=== PATIENT | male | born 1940 | race Caucasian/White ===

== ENCOUNTER 2016-03-20 09:59 | Inpatient (IN) | payer OTHER ==
[~2016-03-20] VITALS: Ht 185.4 cm; Wt 110.1 kg
[~2016-03-20 09:59] MED LIST: ASPI81TA27 PO; ATOR1TAB PO; BUPR1TAB11 PO; CLOP75TA28 PO; FLUO40CA PO; FLUT250M2 INH; GOSE10.8 SC; ISOS30TA17 PO; METO-291 PO; OLME40TA27 PO; TIOTCAP INH
[2016-03-20 10:51] LABS: Basophils # (auto) 0 uL; Basophils % (auto) 0.6 % (0.0-2.0); Eosinophils # (auto) 0.1 uL; Hematocrit 40.6 % (41.0-53.0); Hemoglobin 13.2 g/dL (13.5-17.5); Lymphocytes # (auto) 1.7 uL; Mean Corpuscular Hemoglobin 29.4 pg (28.0-32.0); Mean Corpuscular Hgb Conc. 32.6 g/dL (32.0-36.0); Mean Corpuscular Volume 90.2 fL (80.0-100.0); Mean Platelet Volume 8.9 fL (7.4-10.4); Monocytes # (auto) 0.8 uL; Monocytes % (auto) 11.8 % (0.0-12.0); Neutrophils # (auto) 4.4 uL; Neutrophils % (auto) 61.6 % (37.0-80.0); Platelet Count (auto) 188 10^3/uL (140-450); Red Cell Distribution Width 14.7 % (11.6-16.0); White Blood Cell 7.1 10^3/uL (4.4-10.8)
[2016-03-20 11:08] LABS: Albumin 3.2 g/dL (3.4-5.0); BUN/Creatinine Ratio 15.7; Bilirubin, Total 0.5 mg/dL (0.2-1.0); Calcium 8.5 mg/dL (8.5-10.1); Magnesium 2.3 mg/dL (1.6-2.6); Potassium 3.6 mmol/L (3.5-5.1)
[2016-03-20 12:33] LABS: INR 1.05 (0.9-1.15); Prothrombin Time 10.8 sec (9.37-12.3)
[2016-03-20 13:02] LABS: B-Type Natriuretic Peptide 500.8 pg/mL (0-100); Temperature: 22.5 C (20.0-25.0)
[2016-03-20] MEDS ORDERED: NITROGLYCERIN 0.4 MG SL TAB SL PRN (14:00)
[2016-03-20] MEDS ORDERED: LACTULOSE 20Gm/30ML SOLN PO PRN (14:00)
[2016-03-20] MEDS ORDERED: LORazepam 0.5 MG TAB PO PRN (14:00)
[2016-03-20] MEDS ORDERED: HYDROcodone-ACET 5/325MG TAB PO PRN (14:00)
[2016-03-20] MEDS ORDERED: PROMETHAZINE HCL 25 MG/ML 1ML IV PRN (14:00)
[2016-03-20] MEDS ORDERED: ACETAMINOPHEN 500 MG TAB PO PRN (14:00)
[2016-03-20] MEDS ORDERED: TEMAZEPAM 15 MG CAP PO PRN (14:00)
[2016-03-20] MEDS ORDERED: MORPHINE SULF INJ 2 MG/ML SYRINGE 1ML IV PRN ×2 (14:00)
[2016-03-20] MEDS: ASPirin 81 mg TAB PO SCH (14:04)
[2016-03-20] MEDS ORDERED: ENOXAPARIN SOD 40 MG/0.4 ML SYRINGE SC SCH (14:05)
[2016-03-20] MEDS: ISOSORBIDE MONONITRATE 60 MG TAB PO SCH (14:12)
[2016-03-20] MEDS: METOPROLOL SUCCINATE XL 50 MG TAB PO SCH (14:13)
[2016-03-20] MEDS: LOSARTAN POTASSIUM 50 MG TAB PO SCH (14:15)
[2016-03-20] MEDS: DIGOXIN (250MCG/ML) 2 ML AMPULE IV SCH ×2 (14:30→19:03)
[2016-03-20] MEDS ORDERED: methylPREDNISolone SOD SUCC 40 MG/ML VL IV ONE (14:30)
[2016-03-20] MEDS: ENOXAPARIN SOD 100 MG/1 ML SYRINGE SC SCH ×2 (15:03→22:08)
[2016-03-20] MEDS: POTASSIUM CHL 20 Meq TABLET PO SCH (15:04)
[2016-03-20] MEDS: FUROSEMIDE 40 MG/4 ML VIAL IV SCH (15:06)
[2016-03-20] MEDS: LEVOFLOXACIN 500MG 100 ML IV SCH (15:06)
[2016-03-20] MEDS ORDERED: WARFARIN SODIUM 5 MG TAB PO ONE (17:00)
[2016-03-20] MEDS: ALBUTEROL SULF 2.5 MG/0.5ML(0.5%) NEB SOLN NEB SCH ×2 (18:00→23:00)
[2016-03-20] MEDS: IPRATROPIUM BROM 0.5 MG/2.5ML INH SOL NEB SCH ×2 (18:00→23:00)
[2016-03-20 18:33] VITALS: BP_SYST 136; BP_SYST 161; BP_DIAS 73; BP_DIAS 98
[2016-03-20] MEDS ORDERED: METOPROLOL TARTRATE 1MG/1ML-5ML VIAL IV ONE (19:00)
[2016-03-20] MEDS ORDERED: IOHEXOL 350 MG/ML 100ML IJ ONE (19:39)
[2016-03-20] MEDS ORDERED: PNEUMOCOCCAL VACC POLYS 25 MCG/0.5 ML VIAL IM ONE (19:45)
[2016-03-20 22:00] VITALS: BP 111/71
[2016-03-20] MEDS: BUDESONIDE (INHALATION) 0.5 MG/2 ML NEB NEB SCH (22:00)
[2016-03-20] MEDS: ATORVASTATIN 20 MG TAB PO SCH (22:07)
[2016-03-20] MEDS: buPROPion HCL 100 MG TAB PO SCH (22:08)
[2016-03-20] MEDS: OSELTAMIVIR 75 MG CAP PO SCH (22:08)
[2016-03-21 00:04] VITALS: BP 111/71
[2016-03-21] MEDS: methylPREDNISolone SOD SUCC 40 MG/ML VL IV SCH ×2 (02:36→13:57)
[2016-03-21] MEDS: DIGOXIN (250MCG/ML) 2 ML AMPULE IV SCH (02:39)
[2016-03-21 05:54] VITALS: BP 129/61
[2016-03-21 06:27] LABS: Basophils # (auto) 0 uL; Basophils % (auto) 0.2 % (0.0-2.0); Eosinophils # (auto) 0 uL; Hematocrit 39.3 % (41.0-53.0); Hemoglobin 12.6 g/dL (13.5-17.5); Lymphocytes # (auto) 0.9 uL; Lymphocytes % (auto) 22.3 % (10.0-50.0); Mean Corpuscular Hemoglobin 29.2 pg (28.0-32.0); Mean Corpuscular Hgb Conc. 32.2 g/dL (32.0-36.0); Mean Corpuscular Volume 90.6 fL (80.0-100.0); Mean Platelet Volume 9.2 fL (7.4-10.4); Monocytes # (auto) 0.3 uL; Monocytes % (auto) 7.7 % (0.0-12.0); Neutrophils # (auto) 2.9 uL; Neutrophils % (auto) 69.8 % (37.0-80.0); Platelet Count (auto) 179 10^3/uL (140-450); Red Cell Distribution Width 14.3 % (11.6-16.0); White Blood Cell 4.2 10^3/uL (4.4-10.8)
[2016-03-21] MEDS: buPROPion HCL 100 MG TAB PO SCH ×3 (06:37→22:27)
[2016-03-21] MEDS: FLUoxetine HCL 20 MG CAP PO SCH (06:37)
[2016-03-21 06:44] LABS: Partial Thromboplastin Time 43.8 sec (22.64-33.71); Prothrombin Time 12.2 sec (9.37-12.3)
[2016-03-21] MEDS: IPRATROPIUM BROM 0.5 MG/2.5ML INH SOL NEB SCH ×3 (06:49→18:41)
[2016-03-21] MEDS: ALBUTEROL SULF 2.5 MG/0.5ML(0.5%) NEB SOLN NEB SCH ×3 (06:49→18:41)
[2016-03-21 06:55] LABS: INR 1.18 (0.9-1.15)
[2016-03-21 06:57] LABS: Albumin 2.9 g/dL (3.4-5.0); Bilirubin, Total 0.4 mg/dL (0.2-1.0); Calcium 8.4 mg/dL (8.5-10.1); Potassium 4.4 mmol/L (3.5-5.1); Total Protein 6.7 g/dL (6.4-8.2)
[2016-03-21 07:04] LABS: B-Type Natriuretic Peptide 333 pg/mL (0-100)
[2016-03-21 08:04] LABS: Urine Bilirubin Negative (Negative); Urine Blood Negative /uL (Negative); Urine Color Yellow (Yellow); Urine Glucose Normal (Normal); Urine Hyaline Cast FEW /lpf (0 - 2); Urine Ketone Negative (Negative); Urine Mucus FEW (None Seen); Urine Nitrite Negative (Negative); Urine RBC <1 /hpf (0 - 3); Urine Squamous Epithelial Cell FEW /hpf (<5); Urine Urobilinogen Normal (Negative); Urine pH 5.5 (5.0-8.0)
[2016-03-21 09:24] VITALS: BP 165/74
[2016-03-21] MEDS: ENOXAPARIN SOD 100 MG/1 ML SYRINGE SC SCH ×2 (09:50→22:27)
[2016-03-21] MEDS: LEVOFLOXACIN 500MG 100 ML IV SCH (09:50)
[2016-03-21] MEDS: ASPirin 81 mg TAB PO SCH (09:51)
[2016-03-21] MEDS: OSELTAMIVIR 75 MG CAP PO SCH ×2 (09:51→22:26)
[2016-03-21] MEDS: DIGOXIN 0.25 MG TAB PO SCH (09:51)
[2016-03-21] MEDS: POTASSIUM CHL 20 Meq TABLET PO SCH (09:52)
[2016-03-21] MEDS: FUROSEMIDE 40 MG/4 ML VIAL IV SCH (09:52)
[2016-03-21] MEDS: ISOSORBIDE MONONITRATE 60 MG TAB PO SCH (09:52)
[2016-03-21] MEDS: METOPROLOL SUCCINATE XL 50 MG TAB PO SCH (09:53)
[2016-03-21] MEDS: LOSARTAN POTASSIUM 50 MG TAB PO SCH (09:53)
[2016-03-21] MEDS ORDERED: FURO20TA PO (11:37)
[2016-03-21] MEDS ORDERED: POTA10TA51 PO (11:37)
[2016-03-21] MEDS ORDERED: FLUT250M2 INH (11:37)
[2016-03-21] MEDS ORDERED: CLOP75TA41 PO (11:37)
[2016-03-21] MEDS ORDERED: LEVO125T6 PO (11:39)
[2016-03-21] MEDS: BUDESONIDE (INHALATION) 0.5 MG/2 ML NEB NEB SCH ×2 (12:18→18:40)
[2016-03-21 12:22] VITALS: BP 133/74
[2016-03-21] MEDS ORDERED: WARFARIN SODIUM 5 MG TAB PO ONE (17:00)
[2016-03-21 17:29] VITALS: BP 113/62
[2016-03-21 22:00] VITALS: BP 117/71
[2016-03-21] MEDS: ATORVASTATIN 20 MG TAB PO SCH (22:26)
[2016-03-22] MEDS: IPRATROPIUM BROM 0.5 MG/2.5ML INH SOL NEB SCH ×5 (00:59→23:57)
[2016-03-22] MEDS: ALBUTEROL SULF 2.5 MG/0.5ML(0.5%) NEB SOLN NEB SCH ×5 (01:00→23:57)
[2016-03-22 05:00] VITALS: BP 124/66
[2016-03-22] MEDS: buPROPion HCL 100 MG TAB PO SCH ×3 (05:48→22:27)
[2016-03-22 06:19] LABS: Partial Thromboplastin Time 42.3 sec (22.64-33.71)
[2016-03-22] MEDS: FLUoxetine HCL 20 MG CAP PO SCH (06:19)
[2016-03-22 06:23] LABS: INR 1.34 (0.9-1.15); Prothrombin Time 13.8 sec (9.37-12.3)
[2016-03-22] MEDS: BUDESONIDE (INHALATION) 0.5 MG/2 ML NEB NEB SCH ×2 (06:54→23:57)
[2016-03-22 09:00] VITALS: BP 118/64
[2016-03-22] MEDS: LEVOFLOXACIN 500MG 100 ML IV SCH (09:54)
[2016-03-22] MEDS: ASPirin 81 mg TAB PO SCH (09:54)
[2016-03-22] MEDS: ENOXAPARIN SOD 100 MG/1 ML SYRINGE SC SCH ×2 (09:54→22:28)
[2016-03-22] MEDS: OSELTAMIVIR 75 MG CAP PO SCH ×2 (10:00→22:27)
[2016-03-22 10:52] LABS: Temperature: 22.5 C (20.0-25.0)
[2016-03-22 12:17] VITALS: BP 135/60
[2016-03-22] MEDS: DIGOXIN 0.25 MG TAB PO SCH (13:23)
[2016-03-22] MEDS: METOPROLOL SUCCINATE XL 50 MG TAB PO SCH (13:23)
[2016-03-22 17:19] VITALS: BP 104/75
[2016-03-22 22:00] VITALS: BP 118/77
[2016-03-22] MEDS: ATORVASTATIN 20 MG TAB PO SCH (22:29)
[2016-03-23 06:08] VITALS: BP 122/81
[2016-03-23] MEDS: buPROPion HCL 100 MG TAB PO SCH (06:18)
[2016-03-23] MEDS: FLUoxetine HCL 20 MG CAP PO SCH (06:18)
[2016-03-23] MEDS: IPRATROPIUM BROM 0.5 MG/2.5ML INH SOL NEB SCH ×2 (06:41→13:20)
[2016-03-23] MEDS: ALBUTEROL SULF 2.5 MG/0.5ML(0.5%) NEB SOLN NEB SCH ×2 (06:41→13:20)
[2016-03-23] MEDS: BUDESONIDE (INHALATION) 0.5 MG/2 ML NEB NEB SCH (06:42)
[2016-03-23 07:09] LABS: Basophils # (auto) 0 uL; Basophils % (auto) 0.2 % (0.0-2.0); Eosinophils # (auto) 0 uL; Eosinophils % (auto) 0.5 % (0.0-7.0); Hematocrit 40.3 % (41.0-53.0); Lymphocytes # (auto) 2.1 uL; Lymphocytes % (auto) 31.8 % (10.0-50.0); Mean Corpuscular Hemoglobin 29.3 pg (28.0-32.0); Mean Corpuscular Hgb Conc. 32.2 g/dL (32.0-36.0); Mean Corpuscular Volume 90.9 fL (80.0-100.0); Mean Platelet Volume 9.3 fL (7.4-10.4); Monocytes # (auto) 0.7 uL; Monocytes % (auto) 10.4 % (0.0-12.0); Neutrophils # (auto) 3.7 uL; Neutrophils % (auto) 57.1 % (37.0-80.0); Platelet Count (auto) 198 10^3/uL (140-450); White Blood Cell 6.5 10^3/uL (4.4-10.8)
[2016-03-23 07:17] LABS: BUN/Creatinine Ratio 28.3; Calcium 8.6 mg/dL (8.5-10.1); Potassium 3.9 mmol/L (3.5-5.1)
[2016-03-23 07:58] VITALS: BP 131/88
[2016-03-23] MEDS: LEVOFLOXACIN 500MG 100 ML IV SCH (10:24)
[2016-03-23] MEDS: ASPirin 81 mg TAB PO SCH (10:24)
[2016-03-23] MEDS: DIGOXIN 0.25 MG TAB PO SCH (10:25)
[2016-03-23] MEDS: ENOXAPARIN SOD 100 MG/1 ML SYRINGE SC SCH (10:25)
[2016-03-23] MEDS: METOPROLOL SUCCINATE XL 50 MG TAB PO SCH (10:26)
[2016-03-23] MEDS: OSELTAMIVIR 75 MG CAP PO SCH (11:07)
[2016-03-23 11:53] VITALS: BP 131/88
== END 2016-03-23 14:20 | disposition home or self-care (01) | DRG 280 ==
LOC: ER 09:59 → TELE 10:00 → TELE-CENTR 17:02
PROVIDERS: ADMIT Internal Medicine; ATTEND Family Medicine
PROC: 5A09357 Assistance with Respiratory Ventilation, Less than 24 Consecutive Hours, Continuous Positive Airway Pressure (ICD-10-PCS; principal; 2016-03-23)
DX: I21.4 Non-ST elevation (NSTEMI) myocardial infarction (principal); I63.9 Cerebral infarction, unspecified; J09.X1 Influenza due to identified novel influenza A virus with pneumonia; J18.9 Pneumonia, unspecified organism; I50.43 Acute on chronic combined systolic (congestive) and diastolic (congestive) heart failure; J44.1 Chronic obstructive pulmonary disease with (acute) exacerbation; J44.0 Chronic obstructive pulmonary disease with (acute) lower respiratory infection; E11.65 Type 2 diabetes mellitus with hyperglycemia; I48.91 Unspecified atrial fibrillation; E66.01 Morbid (severe) obesity due to excess calories; E78.5 Hyperlipidemia, unspecified; G47.33 Obstructive sleep apnea (adult) (pediatric); I11.0 Hypertensive heart disease with heart failure; I25.10 Atherosclerotic heart disease of native coronary artery without angina pectoris; J09.X2 Influenza due to identified novel influenza A virus with other respiratory manifestations; I25.2 Old myocardial infarction; Z80.7 Family history of other malignant neoplasms of lymphoid, hematopoietic and related tissues; Z82.3 Family history of stroke; Z82.49 Family history of ischemic heart disease and other diseases of the circulatory system; Z83.3 Family history of diabetes mellitus; Z85.46 Personal history of malignant neoplasm of prostate; Z87.891 Personal history of nicotine dependence; Z98.61 Coronary angioplasty status; Z68.32 Body mass index [BMI] 32.0-32.9, adult; Z99.81 Dependence on supplemental oxygen; Z79.82 Long term (current) use of aspirin; Z79.899 Other long term (current) drug therapy
CPT/HCPCS: 36415; 70450; 70551; 71010; 71275; 80048; 80053; 80061; 81001; 82550; 82607; 82746; 82962; 83036; 83605; 83735; 83880; 84443; 84484; 85025; 85049; 85610; 85652; 85730; 87040; 87070; 87086; 87205; 87400; 93005; 93886; 93971; 94640; 94660; 95819; 96374; 97001; J1956

== ENCOUNTER → 2016-04-06 | Outpatient (CLI) | payer OTHER ==
[~2016-04-06] MED LIST changes: -CLOP75TA28 PO; +CLOP75TA41 PO; +FURO20TA PO; -GOSE10.8 SC; +LEVO125T6 PO; +POTA10TA51 PO
[2016-04-06 12:44] LABS: Basophils # (auto) 0.1 uL; Basophils % (auto) 0.8 % (0.0-2.0); Eosinophils # (auto) 0.5 uL; Eosinophils % (auto) 6.2 % (0.0-7.0); Hematocrit 39.2 % (41.0-53.0); Hemoglobin 12.1 g/dL (13.5-17.5); Lymphocytes # (auto) 2.1 uL; Lymphocytes % (auto) 26.4 % (10.0-50.0); Mean Corpuscular Hemoglobin 28.5 pg (28.0-32.0); Mean Corpuscular Hgb Conc. 30.9 g/dL (32.0-36.0); Mean Corpuscular Volume 92.1 fL (80.0-100.0); Mean Platelet Volume 8.8 fL (7.4-10.4); Monocytes # (auto) 0.7 uL; Monocytes % (auto) 8.9 % (0.0-12.0); Neutrophils # (auto) 4.5 uL; Neutrophils % (auto) 57.7 % (37.0-80.0); Platelet Count (auto) 264 10^3/uL (140-450); Red Cell Distribution Width 15.3 % (11.6-16.0); White Blood Cell 7.8 10^3/uL (4.4-10.8)
[2016-04-06 13:20] LABS: Calcium 8.6 mg/dL (8.5-10.1); Potassium 3.6 mmol/L (3.5-5.1)
[2016-04-06 13:39] LABS: B-Type Natriuretic Peptide 174.21 pg/mL (0-100); Temperature: 21.7 C (20.0-25.0)
== END | disposition home or self-care (01) ==
LOC: LAB 11:44
PROVIDERS: ATTEND Internal Medicine Cardiovascular Disease
DX: I50.22 Chronic systolic (congestive) heart failure (principal)
CPT/HCPCS: 36415; 80048; 83880; 85025

== ENCOUNTER → 2016-04-20 | Outpatient (CLI) | payer OTHER | END | disposition home or self-care (01) | LOC: LAB 09:18 | DX: I48.91 Unspecified atrial fibrillation (principal); E78.4 Other hyperlipidemia | CPT/HCPCS: 36415; 80162 ==

== ENCOUNTER → 2016-04-27 | Outpatient (CLI) | payer OTHER ==
[~2016-04-27] MED LIST changes: +ALBUTEROL SULF 2.5 MG/0.5ML(0.5%) NEB SOLN ONE
== END | disposition home or self-care (01) ==
LOC: RT 08:29
PROVIDERS: ATTEND Internal Medicine Pulmonary Disease
DX: J44.9 Chronic obstructive pulmonary disease, unspecified (principal)
CPT/HCPCS: 94060

== ENCOUNTER → 2016-05-20 | Outpatient (CLI) | payer OTHER ==
[~2016-05-20] MED LIST changes: -ALBUTEROL SULF 2.5 MG/0.5ML(0.5%) NEB SOLN ONE
[2016-05-20 10:09] LABS: Basophils # (auto) 0 uL; Basophils % (auto) 0.3 % (0.0-2.0); Eosinophils # (auto) 0.5 uL; Eosinophils % (auto) 6.5 % (0.0-7.0); Hematocrit 36.1 % (41.0-53.0); Hemoglobin 11.8 g/dL (13.5-17.5); Lymphocytes # (auto) 1.9 uL; Lymphocytes % (auto) 25.6 % (10.0-50.0); Mean Corpuscular Hemoglobin 29.7 pg (28.0-32.0); Mean Corpuscular Hgb Conc. 32.7 g/dL (32.0-36.0); Mean Platelet Volume 8.6 fL (7.4-10.4); Monocytes # (auto) 0.6 uL; Monocytes % (auto) 8.6 % (0.0-12.0); Neutrophils # (auto) 4.4 uL; Platelet Count (auto) 254 10^3/uL (140-450); Red Cell Distribution Width 14.8 % (11.6-16.0); White Blood Cell 7.5 10^3/uL (4.4-10.8)
[2016-05-20 10:30] LABS: Albumin 3.1 g/dL (3.4-5.0); BUN/Creatinine Ratio 12.2; Bilirubin, Total 0.5 mg/dL (0.2-1.0); Calcium 8.5 mg/dL (8.5-10.1); Potassium 3.9 mmol/L (3.5-5.1); Total Protein 7.5 g/dL (6.4-8.2)
== END | disposition home or self-care (01) ==
LOC: LAB 09:51
PROVIDERS: ATTEND Internal Medicine
DX: C61 Malignant neoplasm of prostate (principal)
CPT/HCPCS: 36415; 80053; 83615; 84153; 85025

== ENCOUNTER → 2016-06-10 | Outpatient (CLI) | payer OTHER | END | disposition home or self-care (01) | LOC: XY 06-09 08:25 | PROVIDERS: ATTEND Internal Medicine | DX: C61 Malignant neoplasm of prostate (principal) | CPT/HCPCS: 78306; A9503 ==

== ENCOUNTER → 2016-06-22 | Outpatient (CLI) | payer OTHER ==
[2016-06-22 09:28] LABS: Basophils # (auto) 0 uL; Basophils % (auto) 0.4 % (0.0-2.0); Eosinophils # (auto) 0.5 uL; Eosinophils % (auto) 7.1 % (0.0-7.0); Hematocrit 36.2 % (41.0-53.0); Hemoglobin 11.8 g/dL (13.5-17.5); Lymphocytes % (auto) 25.9 % (10.0-50.0); Mean Corpuscular Hemoglobin 29.7 pg (28.0-32.0); Mean Corpuscular Hgb Conc. 32.5 g/dL (32.0-36.0); Mean Corpuscular Volume 91.2 fL (80.0-100.0); Mean Platelet Volume 8.8 fL (7.4-10.4); Monocytes # (auto) 0.6 uL; Monocytes % (auto) 7.8 % (0.0-12.0); Neutrophils # (auto) 4.4 uL; Neutrophils % (auto) 58.8 % (37.0-80.0); Platelet Count (auto) 270 10^3/uL (140-450); White Blood Cell 7.6 10^3/uL (4.4-10.8)
[2016-06-22 11:07] LABS: BUN/Creatinine Ratio 9.5; Calcium 8.4 mg/dL (8.5-10.1)
[2016-06-22 11:10] LABS: Bilirubin, Total 0.4 mg/dL (0.2-1.0)
== END | disposition home or self-care (01) ==
LOC: LAB 08:56
PROVIDERS: ATTEND Internal Medicine
DX: C61 Malignant neoplasm of prostate (principal)
CPT/HCPCS: 36415; 80053; 83615; 84153; 84154; 85025

== ENCOUNTER → 2016-07-20 | Outpatient (CLI) | payer OTHER ==
[2016-07-20 11:16] LABS: Basophils # (auto) 0 uL; Basophils % (auto) 0.4 % (0.0-2.0); Eosinophils # (auto) 0.5 uL; Eosinophils % (auto) 6.2 % (0.0-7.0); Hematocrit 36.1 % (41.0-53.0); Hemoglobin 11.9 g/dL (13.5-17.5); Lymphocytes % (auto) 26.7 % (10.0-50.0); Mean Corpuscular Hemoglobin 29.7 pg (28.0-32.0); Mean Corpuscular Hgb Conc. 33.1 g/dL (32.0-36.0); Mean Corpuscular Volume 89.7 fL (80.0-100.0); Mean Platelet Volume 8.8 fL (7.4-10.4); Monocytes # (auto) 0.6 uL; Monocytes % (auto) 7.6 % (0.0-12.0); Neutrophils # (auto) 4.5 uL; Neutrophils % (auto) 59.1 % (37.0-80.0); Platelet Count (auto) 263 10^3/uL (140-450); Red Cell Distribution Width 13.9 % (11.6-16.0); White Blood Cell 7.6 10^3/uL (4.4-10.8)
[2016-07-20 11:23] LABS: Urine Bilirubin Negative (Negative); Urine Blood Negative /uL (Negative); Urine Color Yellow (Yellow); Urine Glucose Normal (Normal); Urine Ketone Negative (Negative); Urine Nitrite Negative (Negative); Urine RBC <1 /hpf (0 - 3); Urine Urobilinogen Normal (Negative)
[2016-07-20 11:47] LABS: BUN/Creatinine Ratio 11.9; Bilirubin, Total 0.4 mg/dL (0.2-1.0); Calcium 8.4 mg/dL (8.5-10.1); Total Protein 7.3 g/dL (6.4-8.2)
== END | disposition home or self-care (01) ==
LOC: LAB 10:27
DX: I10 Essential (primary) hypertension (principal); C61 Malignant neoplasm of prostate; E78.4 Other hyperlipidemia
CPT/HCPCS: 36415; 80053; 80061; 81001; 83036; 84153; 84443; 85025

== ENCOUNTER → 2016-09-24 | Outpatient (CLI) | payer OTHER ==
[2016-09-24 10:37] LABS: Basophils # (auto) 0 uL; Basophils % (auto) 0.5 % (0.0-2.0); CONDITION Y; Eosinophils # (auto) 0.6 uL; Hematocrit 38.4 % (41.0-53.0); Hemoglobin 12.8 g/dL (13.5-17.5); Lymphocytes # (auto) 2.4 uL; Lymphocytes % (auto) 25.5 % (10.0-50.0); Mean Corpuscular Hemoglobin 29.9 pg (28.0-32.0); Mean Corpuscular Hgb Conc. 33.2 g/dL (32.0-36.0); Mean Corpuscular Volume 90.1 fL (80.0-100.0); Mean Platelet Volume 8.5 fL (7.4-10.4); Monocytes # (auto) 0.7 uL; Monocytes % (auto) 7.9 % (0.0-12.0); Neutrophils # (auto) 5.5 uL; Neutrophils % (auto) 59.1 % (37.0-80.0); Platelet Count (auto) 277 10^3/uL (140-450); Red Cell Distribution Width 15.9 % (11.6-16.0); White Blood Cell 9.3 10^3/uL (4.4-10.8)
[2016-09-24 10:59] LABS: Albumin 3.3 g/dL (3.4-5.0); BUN/Creatinine Ratio 9.6; Bilirubin, Total 0.5 mg/dL (0.2-1.0); Calcium 8.7 mg/dL (8.5-10.1); Total Protein 7.7 g/dL (6.4-8.2)
== END | disposition home or self-care (01) ==
LOC: LAB 10:19
PROVIDERS: ATTEND Internal Medicine
DX: C61 Malignant neoplasm of prostate (principal)
CPT/HCPCS: 36415; 80053; 83615; 84153; 85025

== ENCOUNTER → 2016-10-04 | Outpatient (CLI) | payer OTHER ==
[2016-10-04 14:32] LABS: Basophils # (auto) 0 uL; Basophils % (auto) 0.4 % (0.0-2.0); CONDITION Y; Eosinophils # (auto) 0.5 uL; Hemoglobin 11.6 g/dL (13.5-17.5); Lymphocytes # (auto) 2.2 uL; Lymphocytes % (auto) 29.3 % (10.0-50.0); Mean Corpuscular Hemoglobin 30.1 pg (28.0-32.0); Mean Corpuscular Hgb Conc. 33.3 g/dL (32.0-36.0); Mean Corpuscular Volume 90.4 fL (80.0-100.0); Mean Platelet Volume 8.1 fL (7.4-10.4); Monocytes # (auto) 0.5 uL; Monocytes % (auto) 7.3 % (0.0-12.0); Neutrophils # (auto) 4.1 uL; Platelet Count (auto) 256 10^3/uL (140-450); Red Cell Distribution Width 16.3 % (11.6-16.0); White Blood Cell 7.4 10^3/uL (4.4-10.8)
[2016-10-04 15:06] LABS: Albumin 3.4 g/dL (3.4-5.0); BUN/Creatinine Ratio 8.7; Bilirubin, Total 0.7 mg/dL (0.2-1.0); Calcium 8.5 mg/dL (8.5-10.1); Potassium 4.1 mmol/L (3.5-5.1); Total Protein 7.3 g/dL (6.4-8.2)
== END | disposition home or self-care (01) ==
LOC: LAB 14:16
DX: I10 Essential (primary) hypertension (principal); M06.9 Rheumatoid arthritis, unspecified; D64.9 Anemia, unspecified; M25.50 Pain in unspecified joint; Z79.899 Other long term (current) drug therapy
CPT/HCPCS: 36415; 80053; 85025; 85652; 86141; 86200; 86431

== ENCOUNTER → 2016-12-17 | Outpatient (CLI) | payer OTHER | END | disposition home or self-care (01) | LOC: LAB 12:01 | PROVIDERS: ATTEND Urology | DX: C61 Malignant neoplasm of prostate (principal); R32 Unspecified urinary incontinence; R35.0 Frequency of micturition | CPT/HCPCS: 84153 ==

== ENCOUNTER 2016-12-31 09:28 | Inpatient (IN) | payer OTHER ==
[~2016-12-31] VITALS: Ht 185.4 cm; Wt 100.4 kg
[~2016-12-31 09:28] MED LIST changes: -METO-291 PO; +METO1TAB9 PO
[2016-12-31 10:32] LABS: Basophils # (auto) 0.3 uL; Eosinophils # (auto) 0.4 uL; Eosinophils % (auto) 6.7 % (0.0-7.0); Hematocrit 38.1 % (41.0-53.0); Hemoglobin 12.5 g/dL (13.5-17.5); Lymphocytes # (auto) 1.2 uL; Lymphocytes % (auto) 21.2 % (10.0-50.0); Mean Corpuscular Hemoglobin 30.2 pg (28.0-32.0); Mean Corpuscular Hgb Conc. 32.7 g/dL (32.0-36.0); Mean Corpuscular Volume 92.4 fL (80.0-100.0); Monocytes # (auto) 0.5 uL; Monocytes % (auto) 8.6 % (0.0-12.0); Neutrophils # (auto) 3.4 uL; Neutrophils % (auto) 58.5 % (37.0-80.0); Nucleated Red Blood Cells % 0.1 %; Platelet Count (auto) 192 10^3/uL (140-450); Red Blood Cells 4.12 10^6/uL (4.5-5.90); Red Cell Distribution Width 14.6 % (11.8-14.3); White Blood Cell 5.8 10^3/uL (4.4-10.8)
[2016-12-31 11:12] LABS: Alanine Aminotransferase 23 U/L (16-61); Albumin 3.3 g/dL (3.4-5.0); Alkaline Phosphatase 130 U/L (45-117); Anion Gap 7 (5-15); Aspartate Aminotransferase 17 U/L (15-37); BUN/Creatinine Ratio 9.1; Bilirubin, Total 0.6 mg/dL (0.2-1.0); Blood Urea Nitrogen 9 mg/dL (7-18); Calcium 8.4 mg/dL (8.5-10.1); Carbon Dioxide 25 mmol/L (21-32); Chloride 108 mmol/L (98-107); GFR African American 94 mL/min; GFR Non-African American 78 mL/min; Glucose 98 mg/dL (74-106); Magnesium 2.4 mg/dL (1.6-2.6); Potassium 4.3 mmol/L (3.5-5.1); Sodium 140 mmol/L (136-145); Total Protein 7.4 g/dL (6.4-8.2)
[2016-12-31] MEDS ORDERED: IPRATROPIUM BROM 0.5 MG/2.5ML INH SOL NEB ONE (11:45)
[2016-12-31] MEDS ORDERED: ASPirin 81 mg TAB PO ONE (11:45)
[2016-12-31] MEDS ORDERED: cefTRIAXone 1GM/50ML D5W 50 ML IV ONE (11:45)
[2016-12-31] MEDS ORDERED: ALBUTEROL SULF 2.5 MG/0.5ML(0.5%) NEB SOLN NEB ONE (11:45)
[2016-12-31] MEDS: ALBUTEROL SULF 2.5 MG/0.5ML(0.5%) NEB SOLN NEB SCH ×2 (12:00→17:24)
[2016-12-31] MEDS ORDERED: ACETAMINOPHEN 500 MG TAB PO PRN (12:00)
[2016-12-31] MEDS ORDERED: LACTULOSE 20Gm/30ML SOLN PO PRN (12:00)
[2016-12-31] MEDS ORDERED: NITROGLYCERIN 0.4 MG SL TAB SL PRN (12:00)
[2016-12-31] MEDS ORDERED: MORPHINE SULFATE 10 MG/ML INJ 1ML SDV IV PRN ×2 (12:00)
[2016-12-31] MEDS ORDERED: LORazepam 0.5 MG TAB PO PRN (12:00)
[2016-12-31] MEDS ORDERED: ALBUTEROL SULF 2.5 MG/0.5ML(0.5%) NEB SOLN NEB PRN (12:00)
[2016-12-31] MEDS ORDERED: HYDROcodone-ACET 5/325MG TAB PO PRN (12:00)
[2016-12-31] MEDS ORDERED: PROMETHAZINE HCL 25 MG/ML 1ML IV PRN (12:00)
[2016-12-31] MEDS ORDERED: TEMAZEPAM 15 MG CAP PO PRN (12:00)
[2016-12-31] MEDS ORDERED: PANTOPRAZOLE 40 MG TAB PO ONE (12:30)
[2016-12-31] MEDS: METOPROLOL SUCCINATE XL 50 MG TAB PO SCH (12:30)
[2016-12-31] MEDS ORDERED: CLOPIDOGREL BISULFATE 75 MG TAB PO ONE (12:30)
[2016-12-31] MEDS ORDERED: FUROSEMIDE 40 MG/4 ML VIAL IV ONE (12:30)
[2016-12-31] MEDS ORDERED: AZITHROMYCIN 500MG/ 250ML 250 ML IV ONE (12:30)
[2016-12-31] MEDS ORDERED: LEVOTHYROXINE SODIUM 100 MCG TAB PO ONE (12:30)
[2016-12-31] MEDS ORDERED: ISOSORBIDE MONONITRATE 60 MG TAB PO ONE (12:30)
[2016-12-31] MEDS ORDERED: LEVOTHYROXINE SODIUM 25 MCG TAB PO ONE (12:30)
[2016-12-31] MEDS ORDERED: POTASSIUM CHL 20 Meq TABLET PO ONE (12:30)
[2016-12-31] MEDS ORDERED: ENOXAPARIN SOD 40 MG/0.4 ML SYRINGE SC ONE (12:30)
[2016-12-31] MEDS ORDERED: FLUoxetine HCL 20 MG CAP PO ONE (12:30)
[2016-12-31] MEDS ORDERED: METOPROLOL SUCCINATE XL 50 MG TAB PO ONE (12:30)
[2016-12-31] MEDS ORDERED: ASPirin-EC 81 mg tab PO ONE (12:30)
[2016-12-31] MEDS: methylPREDNISolone SOD SUCC 40 MG/ML VL IV SCH ×2 (12:41→18:30)
[2016-12-31] MEDS: SODIUM CHLOR 0.9% PF (SALINE LOCK) 10ML VIAL IV SCH ×2 (12:44→22:17)
[2016-12-31] MEDS ORDERED: TAMS0.4C36 PO (13:35)
[2016-12-31] MEDS ORDERED: FLUT250M2 INH (13:35)
[2016-12-31] MEDS ORDERED: LOSA50TA6 PO (13:35)
[2016-12-31] MEDS ORDERED: DIG0125T PO (13:41)
[2016-12-31] MEDS: buPROPion HCL 100 MG TAB PO SCH ×2 (14:33→22:17)
[2016-12-31 15:08] LABS: Urine Bacteria NONE SEEN /hpf (None Seen); Urine Blood Negative /uL (Negative); Urine Mucus FEW (None Seen); Urine Specific Gravity 1.012 (1.001-1.035); Urine WBC <1 /hpf (0 - 3)
[2016-12-31 15:28] VITALS: BP 132/80
[2016-12-31] MEDS: IPRATROPIUM BROM 0.5 MG/2.5ML INH SOL NEB SCH (17:24)
[2016-12-31] MEDS: BUDESONIDE (INHALATION) 0.5 MG/2 ML NEB NEB SCH (19:39)
[2016-12-31 22:00] VITALS: BP 152/64
[2016-12-31] MEDS ORDERED: BUPROPION HCL PO SCH (22:00)
[2016-12-31] MEDS ORDERED: PATIENTS OWN MEDICATION (Atorvastatin Calcium 1 TAB) PO SCH (22:00)
[2016-12-31] MEDS ORDERED: PATIENTS OWN MEDICATION (Fluticasone-Salmeterol (Advair Diskus 250/50) 1 PUFF) INH SCH (22:00)
[2016-12-31] MEDS ORDERED: FLUTICASONE SALMETEROL INH SCH (22:00)
[2016-12-31] MEDS: ATORVASTATIN 20 MG TAB PO SCH (22:17)
[2017-01-01] MEDS: methylPREDNISolone SOD SUCC 40 MG/ML VL IV SCH ×4 (00:26→17:06)
[2017-01-01 05:00] VITALS: BP 137/74
[2017-01-01] MEDS: IPRATROPIUM BROM 0.5 MG/2.5ML INH SOL NEB SCH ×4 (06:16→19:31)
[2017-01-01] MEDS: BUDESONIDE (INHALATION) 0.5 MG/2 ML NEB NEB SCH ×2 (06:16→19:31)
[2017-01-01] MEDS: ALBUTEROL SULF 2.5 MG/0.5ML(0.5%) NEB SOLN NEB SCH ×4 (06:16→19:31)
[2017-01-01] MEDS: SODIUM CHLOR 0.9% PF (SALINE LOCK) 10ML VIAL IV SCH ×3 (06:22→22:07)
[2017-01-01] MEDS: FLUoxetine HCL 20 MG CAP PO SCH (06:23)
[2017-01-01] MEDS: buPROPion HCL 100 MG TAB PO SCH ×3 (06:23→22:07)
[2017-01-01] MEDS ORDERED: PATIENTS OWN MEDICATION (Fluoxetine Hcl 1 CAP) PO SCH (07:00)
[2017-01-01 09:00] VITALS: BP 123/77
[2017-01-01] MEDS ORDERED: PATIENTS OWN MEDICATION (Metoprolol Succinate (Metoprolol Succinate Er) 100 MG) PO SCH (10:00)
[2017-01-01] MEDS ORDERED: ISOSORBIDE MONONITRATE PO SCH (10:00)
[2017-01-01] MEDS ORDERED: TIOTROPIUM BROMIDE MONOHYDRATE INH SCH (10:00)
[2017-01-01] MEDS ORDERED: PATIENTS OWN MEDICATION (Tiotropium Bromide Monohydrate (Spiriva Handihaler) 1 CAP) INH SCH (10:00)
[2017-01-01] MEDS ORDERED: ENOXAPARIN SOD 40 MG/0.4 ML SYRINGE SC SCH (10:00)
[2017-01-01] MEDS ORDERED: PATIENTS OWN MEDICATION (Olmesartan Medoxomil (Benicar) 1 TAB) PO SCH (10:00)
[2017-01-01] MEDS ORDERED: PATIENTS OWN MEDICATION (Levothyroxine Sodium 1 TAB) PO SCH (10:00)
[2017-01-01] MEDS: FUROSEMIDE 40 MG/4 ML VIAL IV SCH (10:47)
[2017-01-01] MEDS: AZITHROMYCIN 500MG/ 250ML 250 ML IV SCH (10:47)
[2017-01-01] MEDS: ASPirin-EC 81 mg tab PO SCH (10:48)
[2017-01-01] MEDS: LOSARTAN POTASSIUM 50 MG TAB PO SCH (10:48)
[2017-01-01] MEDS: PANTOPRAZOLE 40 MG TAB PO SCH (10:49)
[2017-01-01] MEDS: ISOSORBIDE MONONITRATE 60 MG TAB PO SCH (10:49)
[2017-01-01] MEDS: POTASSIUM CHL 20 Meq TABLET PO SCH (10:49)
[2017-01-01] MEDS: CLOPIDOGREL BISULFATE 75 MG TAB PO SCH (10:49)
[2017-01-01] MEDS: LEVOTHYROXINE SODIUM 100 MCG TAB PO SCH (10:50)
[2017-01-01] MEDS: METOPROLOL SUCCINATE XL 50 MG TAB PO SCH (10:50)
[2017-01-01] MEDS: LEVOTHYROXINE SODIUM 25 MCG TAB PO SCH (10:50)
[2017-01-01] MEDS: ENOXAPARIN SOD 40 MG/0.4 ML SYRINGE SC SCH (10:51)
[2017-01-01] MEDS ORDERED: HYDROCODONE PO PRN (11:15)
[2017-01-01] MEDS ORDERED: HOMATROPINE PO PRN (11:15)
[2017-01-01] MEDS ORDERED: guaiFENesin-DEXTROMETHORPHAN 5ML SYR GT PRN (12:00)
[2017-01-01 13:00] VITALS: BP 119/72
[2017-01-01 17:00] VITALS: BP 98/46
[2017-01-01 22:00] VITALS: BP_SYST 122; BP_SYST 131; BP_DIAS 69; BP_DIAS 80
[2017-01-01] MEDS: ATORVASTATIN 20 MG TAB PO SCH (22:06)
[2017-01-02] MEDS: methylPREDNISolone SOD SUCC 40 MG/ML VL IV SCH ×5 (00:17→23:40)
[2017-01-02] MEDS: IPRATROPIUM BROM 0.5 MG/2.5ML INH SOL NEB SCH ×4 (00:36→18:00)
[2017-01-02] MEDS: ALBUTEROL SULF 2.5 MG/0.5ML(0.5%) NEB SOLN NEB SCH ×4 (00:36→18:00)
[2017-01-02 05:00] VITALS: BP 137/79
[2017-01-02] MEDS: FLUoxetine HCL 20 MG CAP PO SCH (06:07)
[2017-01-02] MEDS: buPROPion HCL 100 MG TAB PO SCH ×3 (06:07→21:43)
[2017-01-02] MEDS: SODIUM CHLOR 0.9% PF (SALINE LOCK) 10ML VIAL IV SCH ×3 (06:07→21:43)
[2017-01-02] MEDS: BUDESONIDE (INHALATION) 0.5 MG/2 ML NEB NEB SCH ×2 (06:38→20:12)
[2017-01-02 07:30] VITALS: BP 152/81
[2017-01-02 08:04] VITALS: BP 152/81
[2017-01-02] MEDS: POTASSIUM CHL 20 Meq TABLET PO SCH (09:41)
[2017-01-02] MEDS: ASPirin-EC 81 mg tab PO SCH (09:41)
[2017-01-02] MEDS: LEVOTHYROXINE SODIUM 25 MCG TAB PO SCH (09:41)
[2017-01-02] MEDS: FUROSEMIDE 40 MG/4 ML VIAL IV SCH (09:41)
[2017-01-02] MEDS: LEVOTHYROXINE SODIUM 100 MCG TAB PO SCH (09:42)
[2017-01-02] MEDS: METOPROLOL SUCCINATE XL 50 MG TAB PO SCH (09:42)
[2017-01-02] MEDS: CLOPIDOGREL BISULFATE 75 MG TAB PO SCH (09:42)
[2017-01-02] MEDS: LOSARTAN POTASSIUM 50 MG TAB PO SCH (09:43)
[2017-01-02] MEDS: PANTOPRAZOLE 40 MG TAB PO SCH (09:43)
[2017-01-02] MEDS: ENOXAPARIN SOD 40 MG/0.4 ML SYRINGE SC SCH (09:43)
[2017-01-02] MEDS: AZITHROMYCIN 500MG/ 250ML 250 ML IV SCH (09:44)
[2017-01-02] MEDS: ISOSORBIDE MONONITRATE 60 MG TAB PO SCH (09:44)
[2017-01-02 12:35] VITALS: BP 134/71
[2017-01-02 14:56] LABS: Basophils # (auto) 0 uL; Basophils % (auto) 0.3 % (0.0-2.0); Eosinophils # (auto) 0 uL; Hematocrit 36.4 % (41.0-53.0); Hemoglobin 11.9 g/dL (13.5-17.5); Lymphocytes # (auto) 0.9 uL; Lymphocytes % (auto) 7.2 % (10.0-50.0); Mean Corpuscular Hemoglobin 30.6 pg (28.0-32.0); Mean Corpuscular Hgb Conc. 32.7 g/dL (32.0-36.0); Mean Corpuscular Volume 93.7 fL (80.0-100.0); Monocytes # (auto) 0.3 uL; Monocytes % (auto) 2.4 % (0.0-12.0); Neutrophils # (auto) 11.9 uL; Neutrophils % (auto) 90.1 % (37.0-80.0); Platelet Count (auto) 202 10^3/uL (140-450); Red Blood Cells 3.89 10^6/uL (4.5-5.90); Red Cell Distribution Width 14.5 % (11.8-14.3); White Blood Cell 13.2 10^3/uL (4.4-10.8)
[2017-01-02 15:24] LABS: Albumin 3.5 g/dL (3.4-5.0); BUN/Creatinine Ratio 16.2; Bilirubin, Total 0.5 mg/dL (0.2-1.0); Calcium 8.2 mg/dL (8.5-10.1); Potassium 3.7 mmol/L (3.5-5.1); Total Protein 7.6 g/dL (6.4-8.2)
[2017-01-02 16:47] VITALS: BP 143/80
[2017-01-02] MEDS: ATORVASTATIN 20 MG TAB PO SCH (21:43)
[2017-01-02 22:00] VITALS: BP 148/81
[2017-01-03 05:00] VITALS: BP 152/81
[2017-01-03] MEDS: SODIUM CHLOR 0.9% PF (SALINE LOCK) 10ML VIAL IV SCH (05:32)
[2017-01-03] MEDS: methylPREDNISolone SOD SUCC 40 MG/ML VL IV SCH (05:33)
[2017-01-03] MEDS: buPROPion HCL 100 MG TAB PO SCH (05:33)
[2017-01-03] MEDS: IPRATROPIUM BROM 0.5 MG/2.5ML INH SOL NEB SCH ×3 (06:00→13:21)
[2017-01-03] MEDS: ALBUTEROL SULF 2.5 MG/0.5ML(0.5%) NEB SOLN NEB SCH ×3 (06:00→13:21)
[2017-01-03] MEDS: FLUoxetine HCL 20 MG CAP PO SCH (06:28)
[2017-01-03 07:30] VITALS: BP 151/81
[2017-01-03 09:00] VITALS: BP 151/81
[2017-01-03] MEDS: ASPirin-EC 81 mg tab PO SCH (09:51)
[2017-01-03] MEDS: LOSARTAN POTASSIUM 50 MG TAB PO SCH (09:51)
[2017-01-03] MEDS: ISOSORBIDE MONONITRATE 60 MG TAB PO SCH (09:52)
[2017-01-03] MEDS: METOPROLOL SUCCINATE XL 50 MG TAB PO SCH (09:52)
[2017-01-03] MEDS: POTASSIUM CHL 20 Meq TABLET PO SCH (09:53)
[2017-01-03] MEDS: LEVOTHYROXINE SODIUM 25 MCG TAB PO SCH (09:53)
[2017-01-03] MEDS: PANTOPRAZOLE 40 MG TAB PO SCH (09:53)
[2017-01-03] MEDS: ENOXAPARIN SOD 40 MG/0.4 ML SYRINGE SC SCH (09:54)
[2017-01-03] MEDS: LEVOTHYROXINE SODIUM 100 MCG TAB PO SCH (09:54)
[2017-01-03] MEDS: CLOPIDOGREL BISULFATE 75 MG TAB PO SCH (09:54)
[2017-01-03] MEDS: FUROSEMIDE 40 MG/4 ML VIAL IV SCH (09:55)
[2017-01-03] MEDS: AZITHROMYCIN 500MG/ 250ML 250 ML IV SCH (10:00)
[2017-01-03] MEDS ORDERED: LEVO500T21 PO (12:08)
[2017-01-03 12:26] LABS: Basophils # (auto) 0.1 uL; Basophils % (auto) 0.5 % (0.0-2.0); Eosinophils # (auto) 0 uL; Hemoglobin 12.3 g/dL (13.5-17.5); Lymphocytes # (auto) 1.1 uL; Lymphocytes % (auto) 9.1 % (10.0-50.0); Mean Corpuscular Hemoglobin 30.4 pg (28.0-32.0); Mean Corpuscular Hgb Conc. 33.1 g/dL (32.0-36.0); Mean Corpuscular Volume 91.7 fL (80.0-100.0); Monocytes # (auto) 0.7 uL; Monocytes % (auto) 5.9 % (0.0-12.0); Neutrophils # (auto) 10.4 uL; Neutrophils % (auto) 84.5 % (37.0-80.0); Nucleated Red Blood Cells % 0.1 %; Platelet Count (auto) 223 10^3/uL (140-450); Red Blood Cells 4.04 10^6/uL (4.5-5.90); Red Cell Distribution Width 14.4 % (11.8-14.3); White Blood Cell 12.3 10^3/uL (4.4-10.8)
[2017-01-03 12:44] LABS: BUN/Creatinine Ratio 19.2; Calcium 8.4 mg/dL (8.5-10.1); Potassium 3.7 mmol/L (3.5-5.1)
[2017-01-03] MEDS: BUDESONIDE (INHALATION) 0.5 MG/2 ML NEB NEB SCH (13:21)
[2017-01-03 14:48] VITALS: BP 151/81
[2017-01-03 14:53] VITALS: BP 151/81
[2017-01-03] MEDS ORDERED: methylPREDNISolone SOD SUCC 40 MG/ML VL IV SCH (22:00)
== END 2017-01-03 16:12 | disposition home or self-care (01) | DRG 190 ==
LOC: ER 09:28 → OVERFLOW 09:29 → TELE-WESTW 16:52 → WEST WING 01-02 02:24
PROVIDERS: ADMIT Internal Medicine; ATTEND Internal Medicine
DX: J44.1 Chronic obstructive pulmonary disease with (acute) exacerbation (principal); N17.0 Acute kidney failure with tubular necrosis; I50.32 Chronic diastolic (congestive) heart failure; J96.11 Chronic respiratory failure with hypoxia; I11.0 Hypertensive heart disease with heart failure; J44.0 Chronic obstructive pulmonary disease with (acute) lower respiratory infection; Z99.81 Dependence on supplemental oxygen; F03.90 Unspecified dementia, unspecified severity, without behavioral disturbance, psychotic disturbance, mood disturbance, and anxiety; J20.9 Acute bronchitis, unspecified; N14.1 Nephropathy induced by other drugs, medicaments and biological substances; E78.5 Hyperlipidemia, unspecified; I25.10 Atherosclerotic heart disease of native coronary artery without angina pectoris; T38.0X5A Adverse effect of glucocorticoids and synthetic analogues, initial encounter; T50.1X5A Adverse effect of loop [high-ceiling] diuretics, initial encounter; Y92.89 Other specified places as the place of occurrence of the external cause; Z82.49 Family history of ischemic heart disease and other diseases of the circulatory system; Z83.3 Family history of diabetes mellitus; Z85.46 Personal history of malignant neoplasm of prostate; I25.2 Old myocardial infarction; Z95.5 Presence of coronary angioplasty implant and graft
CPT/HCPCS: 36415; 71020; 80048; 80053; 81001; 82550; 83735; 83880; 84443; 84484; 85025; 87040; 93005; 93306; 94640; 96365; 96368; 96372; J0696

== ENCOUNTER → 2017-01-20 | Outpatient (CLI) | payer OTHER ==
[~2017-01-20] MED LIST changes: -CLOP75TA41 PO; -FLUO40CA PO; -LEVO125T6 PO; +LEVO500T21 PO; +LOSA50TA6 PO; -OLME40TA27 PO; -POTA10TA51 PO; +TAMS0.4C36 PO
[2017-01-20 11:49] LABS: Basophils # (auto) 0.1 uL; Basophils % (auto) 0.7 % (0.0-2.0); Eosinophils # (auto) 0.5 uL; Eosinophils % (auto) 6.4 % (0.0-7.0); Hematocrit 39.3 % (41.0-53.0); Hemoglobin 12.7 g/dL (13.5-17.5); Lymphocytes # (auto) 1.8 uL; Lymphocytes % (auto) 22.2 % (10.0-50.0); Mean Corpuscular Hemoglobin 30.1 pg (28.0-32.0); Mean Corpuscular Hgb Conc. 32.4 g/dL (32.0-36.0); Mean Platelet Volume 8.6 fL (6.9-10.8); Monocytes # (auto) 0.7 uL; Monocytes % (auto) 8.1 % (0.0-12.0); Neutrophils # (auto) 5.1 uL; Neutrophils % (auto) 62.6 % (37.0-80.0); Nucleated Red Blood Cells % 0.1 %; Platelet Count (auto) 177 10^3/uL (140-450); Red Cell Distribution Width 14.9 % (11.8-14.3); White Blood Cell 8.1 10^3/uL (4.4-10.8)
== END | disposition home or self-care (01) ==
LOC: LAB 10:44
PROVIDERS: ATTEND Nurse Practitioner
DX: E78.5 Hyperlipidemia, unspecified (principal); I11.0 Hypertensive heart disease with heart failure; I50.9 Heart failure, unspecified; J44.9 Chronic obstructive pulmonary disease, unspecified
CPT/HCPCS: 36415; 85025

== ENCOUNTER → 2017-02-09 | Outpatient (CLI) | payer OTHER | END | disposition home or self-care (01) | LOC: LAB 14:02 | PROVIDERS: ATTEND Internal Medicine | DX: C61 Malignant neoplasm of prostate (principal); J44.9 Chronic obstructive pulmonary disease, unspecified; I25.10 Atherosclerotic heart disease of native coronary artery without angina pectoris; I21.9 Acute myocardial infarction, unspecified | CPT/HCPCS: 36415; 83615; 84153 ==

== ENCOUNTER 2021-01-02 11:51 | Emergency (ER) | payer OTHER ==
[~2021-01-02] VITALS: Ht 185.4 cm; Wt 97.5 kg
[~2021-01-02 11:51] MED LIST changes: +ASPI-543 PO; -ASPI81TA27 PO; +ATOR-47 PO; -ATOR1TAB PO; +FURO1TAB33 PO; -FURO20TA PO; -LEVO500T21 PO; +LEVO500T31 PO; +LOSA-69 PO; -LOSA50TA6 PO
[2021-01-02 15:34] LABS: Urine Bacteria NONE SEEN /hpf (None Seen); Urine Blood Negative /uL (Negative); Urine Specific Gravity 1.026 (1.001-1.035); Urine WBC 1 /hpf (0 - 3)
[2021-01-02 16:35] VITALS: BP 130/70
== END 2021-01-02 17:02 | disposition home or self-care (01) ==
LOC: ER 11:51
DX: R33.9 Retention of urine, unspecified (principal); I11.0 Hypertensive heart disease with heart failure; I50.9 Heart failure, unspecified; I25.10 Atherosclerotic heart disease of native coronary artery without angina pectoris; I25.2 Old myocardial infarction; J44.9 Chronic obstructive pulmonary disease, unspecified; E78.5 Hyperlipidemia, unspecified; Z86.73 Personal history of transient ischemic attack (TIA), and cerebral infarction without residual deficits; Z90.49 Acquired absence of other specified parts of digestive tract; Z90.89 Acquired absence of other organs; Z87.891 Personal history of nicotine dependence; Z79.82 Long term (current) use of aspirin; Z79.2 Long term (current) use of antibiotics; Z79.899 Other long term (current) drug therapy
CPT/HCPCS: 51702; 81001; 93005

== ENCOUNTER 2021-03-24 16:24 | Inpatient (IN) | payer OTHER ==
[~2021-03-24] VITALS: Ht 188 cm; Wt 93.1 kg
[2021-03-24 18:07] LABS: Basophils # (auto) 0 10 ^3/uL (0-0.2); Basophils % (auto) 0.4 % (0.0-2.0); Eosinophils # (auto) 0 10 ^3/uL (0-0.8); Eosinophils % (auto) 0.1 % (0.0-7.0); Hematocrit 41.2 % (41.0-53.0); Hemoglobin 13.3 g/dL (13.5-17.5); Lymphocytes # (auto) 0.9 10 ^3/uL (0.4-5.4); Lymphocytes % (auto) 14.4 % (10.0-50.0); Mean Corpuscular Hemoglobin 32.3 pg (28.0-32.0); Mean Corpuscular Hgb Conc. 32.4 g/dL (32.0-36.0); Mean Corpuscular Volume 99.7 fL (80.0-100.0); Monocytes # (auto) 0.3 10 ^3/uL (0-1.3); Monocytes % (auto) 5.7 % (0.0-12.0); Neutrophils # (auto) 4.7 10 ^3/uL (1.6-8.6); Neutrophils % (auto) 79.4 % (37.0-80.0); Nucleated Red Blood Cells % 0.3 %; Red Blood Cells 4.13 10^6/uL (4.5-5.90)
[2021-03-24 18:16] LABS: Albumin 3.3 g/dL (3.4-5.0); Calcium 8.4 mg/dL (8.5-10.1); Magnesium 3.8 mg/dL (1.6-2.6); Potassium 4.3 mmol/L (3.5-5.1)
[2021-03-24 18:21] LABS: INR 1.11 (0.9-1.15); Partial Thromboplastin Time 29.3 sec (23.6-33.0)
[2021-03-24 18:26] LABS: BUN/Creatinine Ratio 11.1; Bilirubin, Total 1.3 mg/dL (0.2-1.0); Total Protein 7.1 g/dL (6.4-8.2)
[2021-03-24 19:12] LABS: Urine Bacteria NONE SEEN /hpf (None Seen); Urine Blood 1+ /uL (Negative); Urine Hyaline Cast FEW /lpf (0 - 2); Urine WBC 1 /hpf (0 - 3)
[2021-03-24] MEDS ORDERED: MORPHINE SULFATE INJECTION 2 MG/ML SYRG IV PRN (23:15)
[2021-03-24] MEDS ORDERED: ATORVASTATIN 20 MG TAB PO ONE (23:15)
[2021-03-24] MEDS ORDERED: ENOXAPARIN SOD 100 MG/1 ML SYRINGE SC ONE (23:15)
[2021-03-24] MEDS ORDERED: ONDANSETRON HCL 4 MG/2 ML VIAL IV PRN (23:15)
[2021-03-24] MEDS ORDERED: NITROGLYCERIN 0.4 MG SL TAB SL PRN (23:15)
[2021-03-24] MEDS ORDERED: cefTRIAXone 1GM/50ML D5W 50 ML IV ONE (23:15)
[2021-03-24] MEDS ORDERED: ACETAMINOPHEN 500 MG TAB PO PRN (23:15)
[2021-03-25] VITALS (9 sets, daily range): BP systolic 85–106; BP diastolic 53–65
[2021-03-25 00:03] LABS: Magnesium 2.6 mg/dL (1.6-2.6)
[2021-03-25 00:12] LABS: CRP High Sensitivity 12.9 mg/dL (< 0.3)
[2021-03-25] MEDS: DexAMETHasone SOD PHOS 10MG/1ML VIAL INJ IV SCH ×2 (00:16→09:16)
[2021-03-25] MEDS: AZITHROMYCIN 500MG/ 250ML 250 ML IV SCH ×2 (00:17→09:30)
[2021-03-25] MEDS ORDERED: ZINC220C8 PO (08:57)
[2021-03-25] MEDS ORDERED: MELA3TAB27 PO (08:57)
[2021-03-25] MEDS ORDERED: LOSA25TA38 PO (08:57)
[2021-03-25] MEDS ORDERED: DONE5TAB80 PO (08:57)
[2021-03-25] MEDS ORDERED: PRED10TA PO (08:57)
[2021-03-25] MEDS ORDERED: CLOP75TA70 PO (08:57)
[2021-03-25] MEDS ORDERED: LEVO25TA6 PO (08:57)
[2021-03-25] MEDS ORDERED: METO25TA93 PO (08:57)
[2021-03-25] MEDS ORDERED: FINA5TAB4 PO (08:57)
[2021-03-25] MEDS ORDERED: MIRT1TAB38 PO (08:57)
[2021-03-25] MEDS ORDERED: FURO40TA4 PO (08:57)
[2021-03-25] MEDS: cefTRIAXone 1GM/50ML D5W 50 ML IV SCH (09:10)
[2021-03-25] MEDS: LOSARTAN POTASSIUM 50 MG TAB PO SCH (09:17)
[2021-03-25] MEDS: ASPirin 81 mg TAB PO SCH (09:17)
[2021-03-25] MEDS: METOPROLOL SUCCINATE XL 50 MG TAB PO SCH (09:18)
[2021-03-25] MEDS: ASCORBIC ACID 1,000 MG TAB PO SCH (09:18)
[2021-03-25] MEDS: ISOSORBIDE MONONITRATE ER 60 MG TAB PO SCH (09:18)
[2021-03-25] MEDS: FUROSEMIDE 40 MG TAB PO SCH (09:18)
[2021-03-25] MEDS: CHOLECALCIFEROL (VITD3) 2,000 UNIT CAP/TAB PO SCH (09:19)
[2021-03-25] MEDS: ALBUTEROL SULF HFA 90MCG INH 200DOSE IN PRN ×2 (09:20→22:26)
[2021-03-25 09:40] LABS: Basophils # (auto) 0 10 ^3/uL (0-0.2); Basophils % (auto) 0.2 % (0.0-2.0); Eosinophils # (auto) 0 10 ^3/uL (0-0.8); Hematocrit 38.4 % (41.0-53.0); Hemoglobin 12.6 g/dL (13.5-17.5); Lymphocytes # (auto) 0.8 10 ^3/uL (0.4-5.4); Lymphocytes % (auto) 19.3 % (10.0-50.0); Mean Corpuscular Hemoglobin 32.4 pg (28.0-32.0); Mean Corpuscular Hgb Conc. 32.8 g/dL (32.0-36.0); Mean Corpuscular Volume 98.7 fL (80.0-100.0); Monocytes # (auto) 0.2 10 ^3/uL (0-1.3); Monocytes % (auto) 4.8 % (0.0-12.0); Neutrophils # (auto) 3.3 10 ^3/uL (1.6-8.6); Neutrophils % (auto) 75.7 % (37.0-80.0); Nucleated Red Blood Cells % 0.2 %; Red Blood Cells 3.89 10^6/uL (4.5-5.90); White Blood Cell 4.3 10^3/uL (4.4-10.8)
[2021-03-25 09:53] LABS: Potassium 4.5 mmol/L (3.5-5.1)
[2021-03-25 09:54] LABS: BUN/Creatinine Ratio 18.6; Calcium 8.2 mg/dL (8.5-10.1); Total Protein 6.8 g/dL (6.4-8.2)
[2021-03-25] MEDS: ENOXAPARIN SOD 40 MG/0.4 ML SYRINGE SC SCH (12:21)
[2021-03-25] MEDS: TAMSULOSIN HYDROCHLORIDE 0.4 MG CAP PO SCH (17:37)
[2021-03-25] MEDS: ATORVASTATIN 20 MG TAB PO SCH (21:47)
[2021-03-26] MEDS: ENOXAPARIN SOD 40 MG/0.4 ML SYRINGE SC SCH ×3 (00:16→22:12)
[2021-03-26 05:00] VITALS: BP 94/67
[2021-03-26 08:00] VITALS: BP 100/70
[2021-03-26] MEDS: ASPirin 81 mg TAB PO SCH (09:57)
[2021-03-26] MEDS: cefTRIAXone 1GM/50ML D5W 50 ML IV SCH (09:57)
[2021-03-26] MEDS: FUROSEMIDE 40 MG TAB PO SCH (09:58)
[2021-03-26] MEDS: ASCORBIC ACID 1,000 MG TAB PO SCH (09:59)
[2021-03-26] MEDS: CHOLECALCIFEROL (VITD3) 2,000 UNIT CAP/TAB PO SCH (09:59)
[2021-03-26] MEDS: LOSARTAN POTASSIUM 50 MG TAB PO SCH (10:00)
[2021-03-26] MEDS: METOPROLOL SUCCINATE XL 50 MG TAB PO SCH (10:00)
[2021-03-26] MEDS: ISOSORBIDE MONONITRATE ER 60 MG TAB PO SCH (10:00)
[2021-03-26] MEDS: DexAMETHasone SOD PHOS 10MG/1ML VIAL INJ IV SCH (10:00)
[2021-03-26] MEDS: AZITHROMYCIN 500MG/ 250ML 250 ML IV SCH (10:01)
[2021-03-26 12:00] VITALS: BP 96/56
[2021-03-26] MEDS: SODIUM CHLORIDE 0.9% 1,000 ML IV SCH (13:30)
[2021-03-26] MEDS: ALBUTEROL SULF HFA 90MCG INH 200DOSE IN PRN ×2 (15:32→20:01)
[2021-03-26 16:00] VITALS: BP 103/58
[2021-03-26] MEDS: TAMSULOSIN HYDROCHLORIDE 0.4 MG CAP PO SCH (17:46)
[2021-03-26] MEDS: FUROSEMIDE 20 MG/2 ML VIAL IV SCH (17:46)
[2021-03-26 22:00] VITALS: BP 96/62
[2021-03-26] MEDS: CARVEDILOL 3.125 MG TAB PO SCH (22:00)
[2021-03-26] MEDS: ATORVASTATIN 20 MG TAB PO SCH (22:12)
[2021-03-27 05:00] VITALS: BP 99/60
[2021-03-27] MEDS: FUROSEMIDE 20 MG/2 ML VIAL IV SCH ×2 (06:00→18:00)
[2021-03-27 08:00] VITALS: BP 104/61
[2021-03-27 08:23] LABS: Calcium 7.8 mg/dL (8.5-10.1); Potassium 4.1 mmol/L (3.5-5.1)
[2021-03-27 08:27] LABS: BUN/Creatinine Ratio 36.3
[2021-03-27] MEDS: ALBUTEROL SULF HFA 90MCG INH 200DOSE IN PRN (08:35)
[2021-03-27] MEDS: cefTRIAXone 1GM/50ML D5W 50 ML IV SCH (10:00)
[2021-03-27 10:38] LABS: Basophils # (auto) 0 10 ^3/uL (0-0.2); Eosinophils # (auto) 0 10 ^3/uL (0-0.8); Hematocrit 32.9 % (41.0-53.0); Hemoglobin 10.9 g/dL (13.5-17.5); Lymphocytes # (auto) 0.2 10 ^3/uL (0.4-5.4); Lymphocytes % (auto) 3.2 % (10.0-50.0); Mean Corpuscular Hemoglobin 32.3 pg (28.0-32.0); Mean Corpuscular Hgb Conc. 33.2 g/dL (32.0-36.0); Mean Corpuscular Volume 97.5 fL (80.0-100.0); Monocytes # (auto) 0.4 10 ^3/uL (0-1.3); Monocytes % (auto) 4.8 % (0.0-12.0); Nucleated Red Blood Cells % 0.1 %; Red Blood Cells 3.37 10^6/uL (4.5-5.90); Red Cell Distribution Width 14.6 % (11.8-14.3); White Blood Cell 7.7 10^3/uL (4.4-10.8)
[2021-03-27] MEDS: DexAMETHasone SOD PHOS 10MG/1ML VIAL INJ IV SCH (10:51)
[2021-03-27] MEDS: ASCORBIC ACID 1,000 MG TAB PO SCH (10:52)
[2021-03-27] MEDS: ASPirin 81 mg TAB PO SCH (10:52)
[2021-03-27] MEDS: CLOPIDOGREL BISULFATE 75 MG TAB PO SCH (10:52)
[2021-03-27] MEDS: SODIUM CHLORIDE 0.9% 1,000 ML IV SCH (10:52)
[2021-03-27] MEDS: CHOLECALCIFEROL (VITD3) 2,000 UNIT CAP/TAB PO SCH (10:52)
[2021-03-27] MEDS: LISINOPRIL 5 MG TAB PO SCH (10:53)
[2021-03-27] MEDS: ENOXAPARIN SOD 100 MG/1 ML SYRINGE SC SCH ×2 (10:53→22:23)
[2021-03-27] MEDS: CARVEDILOL 3.125 MG TAB PO SCH ×2 (10:54→22:23)
[2021-03-27] MEDS ORDERED: ANGIOMAX 250 MG VIAL IV ONE (11:53)
[2021-03-27] MEDS ORDERED: SODIUM CHL 0.9% 50 ML ONE (11:54)
[2021-03-27] MEDS ORDERED: fentaNYL CITRATE 100 MCG/2 ML VL ONE (11:54)
[2021-03-27] MEDS ORDERED: MIDAZOLAM HCL 2MG/2ML 2ml VIAL (1mg/ml) ONE (11:54)
[2021-03-27] MEDS ORDERED: LIDOCAINE 2%HCL (LOCAL ANESTH.) INJ 20ML MDV ONE (11:55)
[2021-03-27] MEDS ORDERED: IODIXANOL 320MG/ML 100ML BTL IV ONE (11:56)
[2021-03-27 12:00] VITALS: BP 114/65
[2021-03-27 12:23] LABS: INR 1.02 (0.9-1.15); Partial Thromboplastin Time 26.5 sec (23.6-33.0)
[2021-03-27] MEDS: AZITHROMYCIN 500MG/ 250ML 250 ML IV SCH (14:26)
[2021-03-27] MEDS ORDERED: ALBUAER3 IN (15:00)
[2021-03-27] MEDS ORDERED: ZINC50TA7 PO (15:00)
[2021-03-27] MEDS ORDERED: METO25TA93 PO (15:00)
[2021-03-27] MEDS ORDERED: ARIP10TA29 PO (15:00)
[2021-03-27] MEDS ORDERED: POTA1TAB4 PO (15:00)
[2021-03-27] MEDS ORDERED: MIRT1TAB38 PO (15:00)
[2021-03-27] MEDS ORDERED: CYAN100056 PO (15:00)
[2021-03-27] MEDS ORDERED: TRAZ50TA2 PO (15:00)
[2021-03-27] MEDS ORDERED: FERR-20 PO (15:00)
[2021-03-27] MEDS ORDERED: CHOL20007 PO (15:00)
[2021-03-27] MEDS ORDERED: LOSA25TA38 PO (15:00)
[2021-03-27] MEDS ORDERED: MELA5TAB8 PO (15:00)
[2021-03-27] MEDS ORDERED: FERR1TAB36 PO (15:00)
[2021-03-27] MEDS ORDERED: IPRA0.00 NEB (15:00)
[2021-03-27] MEDS ORDERED: ASCO-22 PO (15:00)
[2021-03-27] MEDS ORDERED: FURO40TA4 PO (15:00)
[2021-03-27] MEDS ORDERED: MAGN400T40 PO (15:00)
[2021-03-27] MEDS ORDERED: LEVO125T7 PO (15:00)
[2021-03-27 16:00] VITALS: BP 100/62
[2021-03-27] MEDS: TAMSULOSIN HYDROCHLORIDE 0.4 MG CAP PO SCH (18:48)
[2021-03-27 21:48] VITALS: BP 103/71
[2021-03-27] MEDS: ATORVASTATIN 20 MG TAB PO SCH (22:23)
[2021-03-28] MEDS: ALBUTEROL SULF HFA 90MCG INH 200DOSE IN PRN ×2 (01:07→12:08)
[2021-03-28 05:00] VITALS: BP 100/67
[2021-03-28 05:30] LABS: Basophils # (auto) 0 10 ^3/uL (0-0.2); Basophils % (auto) 0.3 % (0.0-2.0); Eosinophils # (auto) 0 10 ^3/uL (0-0.8); Hematocrit 33.1 % (41.0-53.0); Hemoglobin 11.2 g/dL (13.5-17.5); Lymphocytes # (auto) 0.2 10 ^3/uL (0.4-5.4); Lymphocytes % (auto) 3.9 % (10.0-50.0); Mean Corpuscular Hemoglobin 32.7 pg (28.0-32.0); Mean Corpuscular Hgb Conc. 33.7 g/dL (32.0-36.0); Mean Corpuscular Volume 97.1 fL (80.0-100.0); Monocytes # (auto) 0.4 10 ^3/uL (0-1.3); Monocytes % (auto) 7.5 % (0.0-12.0); Neutrophils # (auto) 4.8 10 ^3/uL (1.6-8.6); Neutrophils % (auto) 88.3 % (37.0-80.0); Nucleated Red Blood Cells % 0.2 %; Red Blood Cells 3.41 10^6/uL (4.5-5.90); White Blood Cell 5.4 10^3/uL (4.4-10.8)
[2021-03-28] MEDS: FUROSEMIDE 20 MG/2 ML VIAL IV SCH ×2 (05:39→17:21)
[2021-03-28 05:56] LABS: Albumin 2.7 g/dL (3.4-5.0); Calcium 8.3 mg/dL (8.5-10.1); Potassium 4.1 mmol/L (3.5-5.1)
[2021-03-28 05:59] LABS: BUN/Creatinine Ratio 31.4; Bilirubin, Total 0.5 mg/dL (0.2-1.0); Total Protein 6.1 g/dL (6.4-8.2)
[2021-03-28] MEDS: CHOLECALCIFEROL (VITD3) 2,000 UNIT CAP/TAB PO SCH (08:48)
[2021-03-28] MEDS: CLOPIDOGREL BISULFATE 75 MG TAB PO SCH (08:48)
[2021-03-28] MEDS: ASCORBIC ACID 1,000 MG TAB PO SCH (08:49)
[2021-03-28] MEDS: LISINOPRIL 5 MG TAB PO SCH (08:49)
[2021-03-28] MEDS: DexAMETHasone SOD PHOS 10MG/1ML VIAL INJ IV SCH (08:50)
[2021-03-28] MEDS: ENOXAPARIN SOD 100 MG/1 ML SYRINGE SC SCH ×2 (08:51→21:56)
[2021-03-28] MEDS: cefTRIAXone 1GM/50ML D5W 50 ML IV SCH (08:51)
[2021-03-28] MEDS: ASPirin 81 mg TAB PO SCH (08:51)
[2021-03-28] MEDS: AZITHROMYCIN 500MG/ 250ML 250 ML IV SCH (08:51)
[2021-03-28] MEDS: CARVEDILOL 3.125 MG TAB PO SCH ×2 (08:55→21:50)
[2021-03-28 09:00] VITALS: BP 117/66
[2021-03-28 12:44] VITALS: BP 97/59
[2021-03-28 16:46] VITALS: BP 90/63
[2021-03-28] MEDS: TAMSULOSIN HYDROCHLORIDE 0.4 MG CAP PO SCH (17:35)
[2021-03-28] MEDS: ATORVASTATIN 20 MG TAB PO SCH (21:54)
[2021-03-28 22:00] VITALS: BP 97/62
[2021-03-29] MEDS: ALBUTEROL SULF HFA 90MCG INH 200DOSE IN PRN ×2 (01:59→06:44)
[2021-03-29 05:00] VITALS: BP 102/56
[2021-03-29] MEDS: FUROSEMIDE 20 MG/2 ML VIAL IV SCH ×2 (05:12→18:01)
[2021-03-29 09:00] VITALS: BP 130/63
[2021-03-29] MEDS: cefTRIAXone 1GM/50ML D5W 50 ML IV SCH (09:02)
[2021-03-29] MEDS: ASPirin 81 mg TAB PO SCH (09:02)
[2021-03-29] MEDS: DexAMETHasone SOD PHOS 10MG/1ML VIAL INJ IV SCH (09:02)
[2021-03-29] MEDS: CHOLECALCIFEROL (VITD3) 2,000 UNIT CAP/TAB PO SCH (09:02)
[2021-03-29] MEDS: CLOPIDOGREL BISULFATE 75 MG TAB PO SCH (09:02)
[2021-03-29] MEDS: ASCORBIC ACID 1,000 MG TAB PO SCH (09:03)
[2021-03-29] MEDS: ENOXAPARIN SOD 100 MG/1 ML SYRINGE SC SCH (09:03)
[2021-03-29] MEDS: LISINOPRIL 5 MG TAB PO SCH (09:04)
[2021-03-29] MEDS: CARVEDILOL 3.125 MG TAB PO SCH ×2 (09:05→20:22)
[2021-03-29] MEDS ORDERED: DIGOXIN (250MCG/ML) 2 ML AMPULE IV ONE (11:15)
[2021-03-29 13:00] VITALS: BP 117/67
[2021-03-29] MEDS: DIGOXIN (250MCG/ML) 2 ML AMPULE IV SCH ×3 (13:41→20:22)
[2021-03-29 14:52] LABS: Basophils # (auto) 0 10 ^3/uL (0-0.2); Basophils % (auto) 0.1 % (0.0-2.0); Eosinophils # (auto) 0 10 ^3/uL (0-0.8); Hematocrit 33.8 % (41.0-53.0); Hemoglobin 11.3 g/dL (13.5-17.5); Lymphocytes # (auto) 0.2 10 ^3/uL (0.4-5.4); Lymphocytes % (auto) 2.4 % (10.0-50.0); Mean Corpuscular Hemoglobin 32.2 pg (28.0-32.0); Mean Corpuscular Hgb Conc. 33.5 g/dL (32.0-36.0); Mean Corpuscular Volume 96.2 fL (80.0-100.0); Monocytes # (auto) 0.4 10 ^3/uL (0-1.3); Monocytes % (auto) 4.7 % (0.0-12.0); Neutrophils # (auto) 7.4 10 ^3/uL (1.6-8.6); Neutrophils % (auto) 92.8 % (37.0-80.0); Nucleated Red Blood Cells % 0.2 %; Red Blood Cells 3.51 10^6/uL (4.5-5.90); Red Cell Distribution Width 15.1 % (11.8-14.3); White Blood Cell 7.9 10^3/uL (4.4-10.8)
[2021-03-29 15:07] LABS: Albumin 2.9 g/dL (3.4-5.0); Calcium 8.5 mg/dL (8.5-10.1); Potassium 4.2 mmol/L (3.5-5.1)
[2021-03-29 15:13] LABS: BUN/Creatinine Ratio 31.9; Bilirubin, Total 0.6 mg/dL (0.2-1.0); Total Protein 6.2 g/dL (6.4-8.2)
[2021-03-29] MEDS: TAMSULOSIN HYDROCHLORIDE 0.4 MG CAP PO SCH (18:01)
[2021-03-29 20:29] VITALS: BP 138/65
[2021-03-29] MEDS: ATORVASTATIN 20 MG TAB PO SCH (21:17)
[2021-03-29] MEDS: APIXABAN 2.5 MG TAB PO SCH (21:17)
[2021-03-29 22:00] VITALS: BP 126/87
[2021-03-30 05:00] VITALS: BP 124/46
[2021-03-30] MEDS: FUROSEMIDE 20 MG/2 ML VIAL IV SCH ×2 (06:36→09:30)
[2021-03-30 08:00] VITALS: BP 114/57
[2021-03-30] MEDS: ASPirin 81 mg TAB PO SCH (09:27)
[2021-03-30] MEDS: CLOPIDOGREL BISULFATE 75 MG TAB PO SCH (09:27)
[2021-03-30] MEDS: APIXABAN 2.5 MG TAB PO SCH ×2 (09:27→22:17)
[2021-03-30] MEDS: DexAMETHasone SOD PHOS 10MG/1ML VIAL INJ IV SCH (09:30)
[2021-03-30] MEDS: CARVEDILOL 3.125 MG TAB PO SCH ×2 (09:32→10:32)
[2021-03-30] MEDS: cefTRIAXone 1GM/50ML D5W 50 ML IV SCH (09:37)
[2021-03-30 09:42] LABS: Albumin 2.9 g/dL (3.4-5.0); Calcium 8.3 mg/dL (8.5-10.1)
[2021-03-30 09:45] LABS: BUN/Creatinine Ratio 29.9; Bilirubin, Total 0.8 mg/dL (0.2-1.0); Total Protein 6.1 g/dL (6.4-8.2)
[2021-03-30 09:48] LABS: Basophils # (auto) 0 10 ^3/uL (0-0.2); Basophils % (auto) 0.2 % (0.0-2.0); Eosinophils # (auto) 0 10 ^3/uL (0-0.8); Eosinophils % (auto) 0.1 % (0.0-7.0); Hematocrit 34.3 % (41.0-53.0); Hemoglobin 11.2 g/dL (13.5-17.5); Lymphocytes # (auto) 0.3 10 ^3/uL (0.4-5.4); Lymphocytes % (auto) 3.7 % (10.0-50.0); Mean Corpuscular Hemoglobin 31.7 pg (28.0-32.0); Mean Corpuscular Hgb Conc. 32.7 g/dL (32.0-36.0); Mean Corpuscular Volume 97.1 fL (80.0-100.0); Monocytes # (auto) 0.3 10 ^3/uL (0-1.3); Monocytes % (auto) 4.2 % (0.0-12.0); Neutrophils # (auto) 7.3 10 ^3/uL (1.6-8.6); Neutrophils % (auto) 91.8 % (37.0-80.0); Nucleated Red Blood Cells % 0.2 %; Red Blood Cells 3.54 10^6/uL (4.5-5.90); Red Cell Distribution Width 14.9 % (11.8-14.3); White Blood Cell 7.9 10^3/uL (4.4-10.8)
[2021-03-30] MEDS ORDERED: DIGOXIN 0.125 MG TAB PO SCH (10:00)
[2021-03-30] MEDS: CHOLECALCIFEROL (VITD3) 2,000 UNIT CAP/TAB PO SCH (10:00)
[2021-03-30] MEDS: ASCORBIC ACID 1,000 MG TAB PO SCH (10:00)
[2021-03-30] MEDS: LISINOPRIL 5 MG TAB PO SCH (10:00)
[2021-03-30] MEDS: ALBUTEROL SULF HFA 90MCG INH 200DOSE IN PRN (10:45)
[2021-03-30 12:38] VITALS: BP 119/56
[2021-03-30 16:58] VITALS: BP 108/49
[2021-03-30] MEDS: TAMSULOSIN HYDROCHLORIDE 0.4 MG CAP PO SCH (18:49)
[2021-03-30 22:00] VITALS: BP 116/59
[2021-03-30] MEDS: ATORVASTATIN 20 MG TAB PO SCH (22:17)
[2021-03-31 05:40] VITALS: BP 123/47
[2021-03-31] MEDS: ALBUTEROL SULF HFA 90MCG INH 200DOSE IN PRN (05:59)
[2021-03-31] MEDS: FUROSEMIDE 20 MG/2 ML VIAL IV SCH ×2 (06:05→09:28)
[2021-03-31 07:26] LABS: Hematocrit 33.7 % (41.0-53.0); Hemoglobin 11.3 g/dL (13.5-17.5); Mean Corpuscular Hgb Conc. 33.6 g/dL (32.0-36.0); Mean Corpuscular Volume 95.3 fL (80.0-100.0); Red Blood Cells 3.54 10^6/uL (4.5-5.90); Red Cell Distribution Width 14.6 % (11.8-14.3); White Blood Cell 7.4 10^3/uL (4.4-10.8)
[2021-03-31 07:29] LABS: Basophils % (manual) 0 (0.0-2.0); Eosinophils % (manual) 0 (0-7)
[2021-03-31 07:30] LABS: Blast Cells 0; Metamyelocytes % 0; Promyelocytes % 0; Reactive Lymphocytes 0
[2021-03-31 07:41] LABS: Potassium 4.3 mmol/L (3.5-5.1)
[2021-03-31 07:50] LABS: Albumin 2.7 g/dL (3.4-5.0); Calcium 8.4 mg/dL (8.5-10.1); Total Protein 5.8 g/dL (6.4-8.2)
[2021-03-31 08:07] LABS: Band Neutrophils % (manual) 5; Lymphocytes % (manual) 3 (10.0-50.0); Monocytes % (manual) 2 (0-12); Myelocytes % 1
[2021-03-31] MEDS: CARVEDILOL 3.125 MG TAB PO SCH ×2 (09:25→09:38)
[2021-03-31] MEDS: CLOPIDOGREL BISULFATE 75 MG TAB PO SCH (09:26)
[2021-03-31] MEDS: LISINOPRIL 5 MG TAB PO SCH (09:27)
[2021-03-31] MEDS: ASPirin 81 mg TAB PO SCH (09:27)
[2021-03-31] MEDS: CHOLECALCIFEROL (VITD3) 2,000 UNIT CAP/TAB PO SCH (09:27)
[2021-03-31] MEDS: ASCORBIC ACID 1,000 MG TAB PO SCH (09:29)
[2021-03-31] MEDS: DexAMETHasone SOD PHOS 10MG/1ML VIAL INJ IV SCH (09:30)
[2021-03-31] MEDS: cefTRIAXone 1GM/50ML D5W 50 ML IV SCH (09:30)
[2021-03-31 09:49] VITALS: BP 125/47
[2021-03-31] MEDS: APIXABAN 2.5 MG TAB PO SCH ×2 (10:07→21:30)
[2021-03-31 12:36] VITALS: BP 112/61
[2021-03-31 16:45] VITALS: BP 115/55
[2021-03-31] MEDS: TAMSULOSIN HYDROCHLORIDE 0.4 MG CAP PO SCH (18:27)
[2021-03-31] MEDS: ATORVASTATIN 20 MG TAB PO SCH (21:30)
[2021-03-31 22:00] VITALS: BP 118/58
[2021-04-01 06:06] LABS: Hematocrit 39.8 % (41.0-53.0); Hemoglobin 12.9 g/dL (13.5-17.5); Mean Corpuscular Hemoglobin 31.4 pg (28.0-32.0); Mean Corpuscular Hgb Conc. 32.4 g/dL (32.0-36.0); Red Cell Distribution Width 14.8 % (11.8-14.3); White Blood Cell 9.9 10^3/uL (4.4-10.8)
[2021-04-01] MEDS: FUROSEMIDE 20 MG/2 ML VIAL IV SCH (06:36)
[2021-04-01 06:39] LABS: Chloride 105 mmol/L (98-107); Potassium 4.5 mmol/L (3.5-5.1); Sodium 143 mmol/L (136-145)
[2021-04-01 06:43] LABS: Alanine Aminotransferase 40 U/L (16-61); Anion Gap 13 (5-15); Aspartate Aminotransferase 35 U/L (15-37); BUN/Creatinine Ratio 32.8; Blood Urea Nitrogen 43 mg/dL (7-18); Calcium 8.4 mg/dL (8.5-10.1); Carbon Dioxide 25 mmol/L (21-32); GFR African American 68 mL/min; GFR Non-African American 56 mL/min; Glucose 119 mg/dL (74-106)
[2021-04-01 06:46] LABS: Alkaline Phosphatase 86 U/L (45-117); Bilirubin, Total 0.9 mg/dL (0.2-1.0); Total Protein 6.5 g/dL (6.4-8.2)
[2021-04-01 06:49] LABS: Basophils % (manual) 0 (0.0-2.0); Blast Cells 0; Eosinophils % (manual) 0 (0-7); Metamyelocytes % 0; Promyelocytes % 0; Reactive Lymphocytes 0
[2021-04-01 08:00] VITALS: BP 99/50
[2021-04-01 08:41] VITALS: BP 99/50
[2021-04-01] MEDS: CARVEDILOL 3.125 MG TAB PO SCH ×2 (10:00→20:38)
[2021-04-01] MEDS: LISINOPRIL 5 MG TAB PO SCH (10:00)
[2021-04-01] MEDS: cefTRIAXone 1GM/50ML D5W 50 ML IV SCH (10:52)
[2021-04-01] MEDS: ASCORBIC ACID 1,000 MG TAB PO SCH (10:53)
[2021-04-01] MEDS: DexAMETHasone SOD PHOS 10MG/1ML VIAL INJ IV SCH (10:53)
[2021-04-01] MEDS: ASPirin 81 mg TAB PO SCH (10:53)
[2021-04-01] MEDS: APIXABAN 2.5 MG TAB PO SCH ×2 (10:54→20:42)
[2021-04-01] MEDS: CHOLECALCIFEROL (VITD3) 2,000 UNIT CAP/TAB PO SCH (10:54)
[2021-04-01] MEDS: CLOPIDOGREL BISULFATE 75 MG TAB PO SCH (10:54)
[2021-04-01 12:35] VITALS: BP 118/48
[2021-04-01 12:48] LABS: Band Neutrophils % (manual) 10; Lymphocytes % (manual) 9 (10.0-50.0); Monocytes % (manual) 5 (0-12); Myelocytes % 1
[2021-04-01 16:46] VITALS: BP 114/59
[2021-04-01] MEDS: TAMSULOSIN HYDROCHLORIDE 0.4 MG CAP PO SCH (18:08)
[2021-04-01 20:31] VITALS: BP 96/62
[2021-04-01] MEDS: ATORVASTATIN 20 MG TAB PO SCH (20:42)
[2021-04-02 05:00] VITALS: BP 102/50
[2021-04-02] MEDS: ALBUTEROL SULF HFA 90MCG INH 200DOSE IN PRN (06:02)
[2021-04-02 07:44] LABS: Basophils # (auto) 0 10 ^3/uL (0-0.2); Basophils % (auto) 0.1 % (0.0-2.0); Eosinophils # (auto) 0 10 ^3/uL (0-0.8); Hematocrit 36.3 % (41.0-53.0); Hemoglobin 11.9 g/dL (13.5-17.5); Lymphocytes # (auto) 0.3 10 ^3/uL (0.4-5.4); Lymphocytes % (auto) 3.5 % (10.0-50.0); Mean Corpuscular Hemoglobin 31.5 pg (28.0-32.0); Mean Corpuscular Hgb Conc. 32.8 g/dL (32.0-36.0); Mean Corpuscular Volume 96.1 fL (80.0-100.0); Monocytes # (auto) 0.4 10 ^3/uL (0-1.3); Monocytes % (auto) 4.4 % (0.0-12.0); Neutrophils # (auto) 8.8 10 ^3/uL (1.6-8.6); Nucleated Red Blood Cells % 0.1 %; Red Blood Cells 3.78 10^6/uL (4.5-5.90); White Blood Cell 9.6 10^3/uL (4.4-10.8)
[2021-04-02 08:00] VITALS: BP 103/70
[2021-04-02 08:10] LABS: Potassium 4.4 mmol/L (3.5-5.1)
[2021-04-02 08:17] LABS: Albumin 2.8 g/dL (3.4-5.0); BUN/Creatinine Ratio 36.2; Bilirubin, Total 0.8 mg/dL (0.2-1.0); Calcium 8.6 mg/dL (8.5-10.1); Total Protein 6.4 g/dL (6.4-8.2)
[2021-04-02 09:00] VITALS: BP 103/70
[2021-04-02] MEDS: LISINOPRIL 5 MG TAB PO SCH (10:00)
[2021-04-02] MEDS: CARVEDILOL 3.125 MG TAB PO SCH (10:00)
[2021-04-02] MEDS: CLOPIDOGREL BISULFATE 75 MG TAB PO SCH (10:00)
[2021-04-02] MEDS: cefTRIAXone 1GM/50ML D5W 50 ML IV SCH (10:30)
[2021-04-02] MEDS: DexAMETHasone SOD PHOS 10MG/1ML VIAL INJ IV SCH (10:31)
[2021-04-02] MEDS: ASPirin 81 mg TAB PO SCH (10:31)
[2021-04-02] MEDS: CHOLECALCIFEROL (VITD3) 2,000 UNIT CAP/TAB PO SCH (10:37)
[2021-04-02] MEDS: ASCORBIC ACID 1,000 MG TAB PO SCH (10:38)
[2021-04-02] MEDS: APIXABAN 2.5 MG TAB PO SCH (10:39)
[2021-04-02] MEDS ORDERED: ATOR20TA50 PO ×2 (12:59→13:22)
[2021-04-02] MEDS ORDERED: CLOP75TA28 PO ×2 (12:59→13:22)
[2021-04-02] MEDS ORDERED: FURO1TAB33 PO (12:59)
[2021-04-02] MEDS ORDERED: TAM04C PO ×2 (12:59→13:22)
[2021-04-02] MEDS ORDERED: ASPI1CHW15 PO ×2 (12:59→13:22)
[2021-04-02] MEDS ORDERED: ASCO10003 PO ×2 (12:59→13:22)
[2021-04-02] MEDS ORDERED: CHOL1CAP47 PO (12:59)
[2021-04-02] MEDS ORDERED: APIX2.5T PO ×2 (12:59→13:22)
[2021-04-02] MEDS ORDERED: LISI-275 PO ×2 (12:59→13:22)
[2021-04-02] MEDS ORDERED: CAR3125T PO ×2 (12:59→13:22)
[2021-04-02 13:00] VITALS: BP 114/65
[2021-04-02] MEDS ORDERED: FURO1TAB31 PO (13:02)
[2021-04-02] MEDS ORDERED: DEXA6TAB6 PO (13:22)
[2021-04-02] MEDS ORDERED: ZINC220C10 PO (13:23)
[2021-04-02] MEDS ORDERED: CHOL20007 OR (13:23)
[2021-04-02 15:00] VITALS: BP_SYST 103; BP_SYST 109; BP_DIAS 70; BP_DIAS 87
[2021-04-02 16:50] VITALS: BP 109/87
[2021-04-02] MEDS: TAMSULOSIN HYDROCHLORIDE 0.4 MG CAP PO SCH (17:42)
== END 2021-04-02 20:52 | disposition home health service (06) | DRG 177 ==
LOC: EDBD 16:24 → ER 16:24 → TELE 23:10 → TELE-WESTW 03-25 00:05
PROVIDERS: ADMIT Nurse Practitioner; ATTEND Internal Medicine Geriatric Medicine
PROC: 05HC33Z Insertion of Infusion Device into Left Basilic Vein, Percutaneous Approach (ICD-10-PCS; 2021-03-24)
PROC: B54NZZA Ultrasonography of Left Upper Extremity Veins, Guidance (ICD-10-PCS; 2021-03-24)
PROC: 4A023N8 Measurement of Cardiac Sampling and Pressure, Bilateral, Percutaneous Approach (ICD-10-PCS; principal; 2021-03-27)
PROC: B215YZZ Fluoroscopy of Left Heart using Other Contrast (ICD-10-PCS; 2021-03-27)
PROC: 4A033BC Measurement of Arterial Pressure, Coronary, Percutaneous Approach (ICD-10-PCS; 2021-03-27)
PROC: B211YZZ Fluoroscopy of Multiple Coronary Arteries using Other Contrast (ICD-10-PCS; 2021-03-27)
PROC: 05HC33Z Insertion of Infusion Device into Left Basilic Vein, Percutaneous Approach (ICD-10-PCS; 2021-03-31)
PROC: B54NZZA Ultrasonography of Left Upper Extremity Veins, Guidance (ICD-10-PCS; 2021-03-31)
DX: U07.1 COVID-19 (principal); J12.82 Pneumonia due to coronavirus disease 2019; J96.01 Acute respiratory failure with hypoxia; I50.23 Acute on chronic systolic (congestive) heart failure; I21.4 Non-ST elevation (NSTEMI) myocardial infarction; N17.9 Acute kidney failure, unspecified; I42.9 Cardiomyopathy, unspecified; J44.0 Chronic obstructive pulmonary disease with (acute) lower respiratory infection; J98.11 Atelectasis; E78.5 Hyperlipidemia, unspecified; E07.9 Disorder of thyroid, unspecified; I05.0 Rheumatic mitral stenosis; R74.01 Elevation of levels of liver transaminase levels; I11.0 Hypertensive heart disease with heart failure; I25.10 Atherosclerotic heart disease of native coronary artery without angina pectoris; I05.9 Rheumatic mitral valve disease, unspecified; S51.812A Laceration without foreign body of left forearm, initial encounter; W18.39XA Other fall on same level, initial encounter; I48.91 Unspecified atrial fibrillation; Z79.02 Long term (current) use of antithrombotics/antiplatelets; Z80.7 Family history of other malignant neoplasms of lymphoid, hematopoietic and related tissues; Z82.3 Family history of stroke; Z82.49 Family history of ischemic heart disease and other diseases of the circulatory system; Z86.73 Personal history of transient ischemic attack (TIA), and cerebral infarction without residual deficits; Z87.891 Personal history of nicotine dependence; Z98.61 Coronary angioplasty status; Z99.81 Dependence on supplemental oxygen; Z90.49 Acquired absence of other specified parts of digestive tract; Y93.89 Activity, other specified; Y92.89 Other specified places as the place of occurrence of the external cause; Y99.8 Other external cause status
CPT/HCPCS: 36415; 71045; 80048; 80053; 80162; 81001; 82728; 83036; 83605; 83615; 83735; 83880; 84484; 85007; 85025; 85027; 85379; 85610; 85730; 86141; 87426; 93005; 93306; 93460; 93571; 93970; 94640; 96365; 96372; 97110; 97163; 97530; 99152; 99153; C1751; G0378; J0696; J1100; J2250; Q9967